=== PATIENT | female | born 1955 | race Caucasian/White ===

== ENCOUNTER 2016-08-27 22:12 | Inpatient (IN) ==
[2016-08-27] MEDS ORDERED: MORPHINE 2 MG/1 ML SYRINGE IV STA (22:37)
[2016-08-27] MEDS ORDERED: ONDANSETRON 4 MG/2 ML VIAL ONE (22:37)
[2016-08-27] MEDS ORDERED: ONDANSETRON 4 MG/2 ML VIAL IV STA (22:37)
[2016-08-27] MEDS ORDERED: MORPHINE 2 MG/1 ML SYRINGE ONE (22:38)
[2016-08-27 22:47] LABS: Basophils % 0.3 % (0.0-0.8); Eosinophils # 0.2 10*3/uL (0.0-0.87); Eosinophils % 2.8 % (0.00-10.9); Hematocrit 35.6 VOL% (35.7-47.0); Hemoglobin 11.9 GM/DL (12.0-16.0); Immature Granulocytes % 0.5 %; Immature Granulocytes Absolute 0.04 #; Lymphocytes # 2.7 10*3/uL (1.4-4.0); Lymphocytes % 31.4 % (21.3-54.2); Mean Corpuscular HGB Conc 33.4 GM/DL (32-36); Mean Corpuscular Hemoglobin 30 PG (27-34); Mean Corpuscular Volume 89.7 FL (87-102); Mean Platelet Volume 9.8 FL (9.6-12.0); Monocytes # 0.6 10*3/uL (0.11-0.8); Monocytes % 7.5 % (1.7-12.7); Neutrophils # 4.9 10*3/uL (1.4-7.4); Neutrophils % 57.5 % (38.7-73.9); Platelet Count 163 T/CUMM (130-400); Red Blood Count 3.97 MC/CUMM (3.8-5.5); Red Cell Distribution Width 13.1 % (9.3-17.3); White Blood Count 8.6 T/CUMM (4-12)
--- NOTE | 2016-08-27 22:58 | Emergency Department Note ---
IVentura Emily, am scribing for, and in the presence of, Danuta Alvarado DO 22:45. I, Danuta Alvarado DO, personally performed the services described in this documentation, ascribed by Cami Whitehead in my presence, and it is both accurate and complete . Arrival - Arrival Chief Complaint: Chest Pain Stated Complaint: chest pain,SOB ED Nursing Triage Note: C/O Chest pain-Midsternal radiating down left arm. Onset 2 days ago-Progressively getting worse. Reports taking gas-x without relief. +nausea/vomiting Mode of Arrival: Ambulatory Limitations: No Limitations Source: Patient, Family - History of Present Illness HPI Narrative: Pt is a 61 y/o female who came to ED with c/o chest pain, SOB, and left arm pain that has been ongoing for since night. Pt states she thought was just "gas" and took anti-acid pills but no relief. Pt has had some N/V that started at 230am this morning. Pt saw Dr. Cochran a year ago with heart cath but nothing was found, denies ever being dx with LBBB, and has not followed up since then. She notes she was given Nitro tabs and took two tonight. Pt reports moving or raising left arm is painful and hasn't slept since when pain started. Pt's PCP is Dr. Dharmesh Torres in [facility]. Her BP is 195/ 90 in ED. Onset (ago): day(s) Consistency: constant Severity: moderate Severity scale (1-10): 6 Quality: aching Date of Last Menstrual Period: Hysterectomy Allergies/Adverse Reactions: Allergies Allergy/AdvReac Type Severity Reaction Status Date / Time No Known Allergies Allergy Verified 08/27/16 22:21 Home Medications: Home Medications Medication Instructions Recorded Confirmed Type Atorvastatin [Lipitor] 40 mg PO BEDTIME 08/27/16 08/27/16 History Escitalopram [Lexapro] 20 mg PO DAILY 08/27/16 08/27/16 History Furosemide Tab [Lasix Tab] 20 mg PO DAILY 08/27/16 08/27/16 History Gabapentin 300 mg PO BID 08/27/16 08/27/16 History HYDROcodone/ACETAMIN 5-325 [[place] 1 tablet PO BID PRN 08/27/16 08/27/16 History 5-325] Lansoprazole 30 mg PO DAILY 08/27/16 08/27/16 History Levothyroxine Tab [Synthroid Tab] 137 mcg PO DAILY@0700 08/27/16 08/27/16 History Lisinopril 40 mg PO DAILY 08/27/16 08/27/16 History Metformin HCl 500 mg PO BID 08/27/16 08/27/16 History Nabumetone 750 mg PO BID 08/27/16 08/27/16 History Oxybutynin [Ditropan] 5 mg PO DAILY 08/27/16 08/27/16 History Oxycodone HCl/Acetaminophen 1 each PO Q4-6H PRN 08/27/16 08/27/16 History [Oxycodone-Acetaminophen 5-325] Ropinirole HCl 2 mg PO DAILY 08/27/16 08/27/16 History Review of System - Review of System 12 point system: reviewed and no additional remarkable complaints except as stated - Review of System Constitutional: Present: other (unable to sleep). Absent: chills, diaphoresis, fever Respiratory: Present: respiratory distress. Absent: cough Cardiovascular: Present: chest pain. Absent: syncope Gastrointestinal: Present: nausea, vomiting. Absent: abdominal pain Musculoskeletal: Present: arm pain (left arm especially with movement). Absent : back pain Skin: Absent: rash Neurological: Absent: headache, numbness, paresthesias, confusion Medical,Surgical,& Family Hx - Medical History Cardio: History of: Hypertension Endocrine: History of: Dyslipidemia - Surgical History Cardiac Surgeries: Sugical HX of: Cardiac Catheterization (in 2016, but nothing found under supervision of Dr. Cochran) - Family History Family History: noncontributory - Social History Smoking Status: Never smoker Frequency of Alcohol Use: None Type of Drug Use: None Functional capacity: independent ambulation Exam Vital Signs: Vital Signs Temperature 98.7 F 08/27/16 22:19 Pulse Rate 75 08/27/16 22:19 Respiratory Rate 18 08/27/16 22:19 Blood Pressure 191/97 08/27/16 22:19 O2 Sat by Pulse Oximetry 98 08/27/16 22:19 - General General appearance: alert, in no apparent distress, obese - Head Head exam: Present: atraumatic, normocephalic - Eye Eye exam: Present: PERRL, EOMI - ENT ENT exam: Present: mucous membranes moist. Absent: mucous membranes dry - Neck Neck exam: Present: full ROM. Absent: tenderness - Chest Chest inspection: Present: symmetric chest wall rise, tenderness (tenderness on palpation over left chest wall and into left arm) - Respiratory Respiratory exam: Present: normal lung sounds bilaterally. Absent: respiratory distress - Cardiovascular Cardiovascular exam: Present: regular rate, normal rhythm, normal heart sounds - Abdominal Exam Abdominal exam: Present: soft, normal bowel sounds. Absent: tenderness - Extremities Exam Extremities exam: Present: full ROM, tenderness (left arm). Absent: pedal edema - Neurological Exam Neurological exam: Present: alert, oriented X3, CN II-XII intact. Absent: motor sensory deficit - Psychiatric Psychiatric exam: Present: normal affect, normal mood - Skin Skin exam: Present: warm, dry Course Course Narrative: spoke with Dr Philippe who will admit pt Results - Labs CBC & BMP: 08/27/16 22:34 08/27/16 22:34 Lab Results: I have reviewed the patients labs Labs: Laboratory Tests 08/27/16 08/27/16 22:34 22:34 Hgb 11.9 L Hct 35.6 L Glucose 133 H Troponin I 0.358 H Albumin/Globulin Ratio 1.0 L Disposition Clinical Impression: Chest pain, Elevated troponin Case discussed with: patient Disposition: Still a Patient Condition: Stable Time of Disposition: 00:07
[2016-08-27 23:00] LABS: Alanine Aminotransferase 18 U/L (13-56); Albumin 3.8 G/DL (3.4-5.0); Alkaline Phosphatase 98 U/L (45-117); Aspartate Amino Transferase 16 U/L (0-37); Blood Urea Nitrogen 11 MG/DL (7-18); Glucose 133 MG/DL (74-106); Osmolality,Calculated 279.4 MOS/KG (273-304); Potassium 3.5 MMOL/L (3.5-5.1); Sodium 140 MMOL/L (136-145); Total Protein 7.3 G/DL (6.4-8.3); Troponin I Only 0.358 NG/ML (0.00-0.045)
[2016-08-27] MEDS ORDERED: ASPIRIN 325 MG TABLET PO STA (23:36)
[2016-08-27] MEDS ORDERED: ASPIRIN 325 MG TABLET ONE (23:48)
[2016-08-28] MEDS ORDERED: MAGNESIUM SULF RIDER 2 GM in PREMIX 1 EACH IV PRN (00:08)
[2016-08-28] MEDS ORDERED: MAGNESIUM SULF RIDER 4 GM in PREMIX 1 EACH IV PRN (00:08)
[2016-08-28] MEDS: DEXTROSE 5% NACL 0.45% 1,000 ML IV SCH ×2 (01:30→09:05)
[2016-08-28] MEDS: ONDANSETRON 4 MG/2 ML VIAL IV PRN ×3 (02:58→23:56)
[2016-08-28] MEDS: MORPHINE 2 MG/1 ML SYRINGE IV PRN ×4 (03:00→21:44)
[2016-08-28 05:58] LABS: Troponin I Only 0.435 NG/ML (0.00-0.045)
[2016-08-28 06:03] LABS: Magnesium 1.8 MG/DL (1.8-2.4); Risk Ratio 4.15; Thyroid Stimulating Hormone 0.776 uIU/ml (0.358-3.74); VLDL CHOLESTEROL 36.8 MG/DL
[2016-08-28] MEDS ORDERED: ENOXAPARIN 40 MG/0.4 ML SYRINGE SUBCUT SCH (09:00)
--- NOTE | 2016-08-28 10:02 | Cardiology History & Physical ---
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 Parnell is a 61 year old female whom I have treated in the past, last seen in clinic December 2014. She has a history of diabetes, hypertension, hyperlipidemia. Left heart catheterization December 2014 revealed no CAD. She has a history of gastritis, esophagitis, H. pylori, hiatal hernia and sleep apnea. She presents with chest discomfort. Symptoms began night (3 days ago) with a chest discomfort that radiated into her left shoulder. She had associated nausea and vomiting at that time. She has had episodic chest discomfort since and that has been waxing and waning, and on the night of admission became so intense it radiated down into her left arm and fingertips. She took 2 of her 's nitroglycerin which improved his symptoms somewhat, and came to the emergency room. She has continued to have chest discomfort overnight, which is triggered when she gets out of bed to go to the bathroom. It improves when she lays down. Family is present and described a decline in her exercise tolerance, with observations that she is far more dyspneic than usual and that any "little activity wears her out". They have observed dyspnea on exertion with her. She has not had any other acute illnesses and denies any recent GI bleeding, melena, bright red blood per rectum, coughs, colds, fevers, chills. Impression and plan: 1. Acute coronary syndrome-we are going to increase her anticoagulation to therapeutic Lovenox, and apply Nitropaste. We may need to add an antiplatelet agent. We are going to need to proceed with cardiac catheterization. If we can stabilize her symptoms this will commence Monday, but if she becomes more unstable or refractory to medical therapy we will need to do this more urgently. We will check an echocardiogram for further risk stratification. 2. Hypertension-we will monitor and treat accordingly. 3. Diabetes mellitus-we will have to hold her metformin in anticipation of catheterization. 4. Hyperlipidemia-we will continue therapy and monitor her LDL. Home Medications Medication Instructions Recorded Confirmed Type Atorvastatin [Lipitor] 40 mg PO BEDTIME 08/27/16 08/27/16 History Furosemide Tab [Lasix Tab] 20 mg PO DAILY 08/27/16 08/27/16 History HYDROcodone/ACETAMIN 5-325 [[place] 1 tablet PO BID PRN 08/27/16 08/27/16 History 5-325] Lansoprazole 30 mg PO DAILY 08/27/16 08/27/16 History Levothyroxine Tab [Synthroid Tab] 137 mcg PO DAILY@0700 08/27/16 08/27/16 History Lisinopril 40 mg PO DAILY 08/27/16 08/27/16 History Metformin HCl 500 mg PO BID 08/27/16 08/27/16 History Oxycodone HCl/Acetaminophen 1 each PO Q4-6H PRN 08/27/16 08/27/16 History [Oxycodone-Acetaminophen 5-325] Fluticasone/Salmeterol 250-50 1 puff INH BID 08/28/16 08/28/16 History [Advair 250-50] Allergies Allergy/AdvReac Type Severity Reaction Status Date / Time No Known Allergies Allergy Verified 08/27/16 22:21 12 point system: reviewed and no additional remarkable complaints except as stated Medical,Surgical,& Family Hx - Medical History Cardio: History of: Hypertension Endocrine: History of: Diabetes Mellitus (NIDDM), Dyslipidemia, Thyroid Disorder Respiratory: History of: Obstructive Sleep Apnea (uses cpap sometimes) - Surgical History Cardiac Surgeries: Sugical HX of: Cardiac Catheterization (December 2013, no significant coronary artery disease) Orthopedic Surgeries: Surgical HX of;: Total Knee Replacement (right and left knees) - Social History Smoking Status: Never smoker Frequency of Alcohol Use: None Type of Drug Use: None Marital Status: Lives With:: Spouse Functional capacity: independent ambulation Cardiology Physical Exam - Constitutional Vitals: Vital Signs Temp Pulse Resp BP Pulse Ox 97 F L 97 H 20 123/60 95 08/28/16 08:00 08/28/16 08:00 08/28/16 08:00 08/28/16 08:00 08/28/16 08:00 Intake and Output 08/27/16 08/28/16 08/28/16 23:59 07:59 15:59 Intake Total 300 / 300 1000 / 1000 Balance 300 / 300 1000 / 1000 Intake: IV 1000 / 1000 D5 1/2Ns 1,000 ml @ 125 1000 / 1000 mls/hr IV .Q8H PABLO Rx#: [id number] Oral 300 / 300 Other: Voiding Method Toilet # Voids 1 Weight 111.584 kg 111.725 kg Patient Weight 08/28/16 23:59 Weight 111.725 kg Exam: General appearance: Obese, no acute distress - Head Head exam: Present: normal inspection, normocephalic, atraumatic. Absent: hematoma, laceration - Eye Eye exam: Present: EOMI. Absent: conjunctival injection, nystagmus, periorbital swelling, scleral icterus, laceration to eyelids Pupils: Present: PERRL. Absent: constricted, dilated, fixed, irregular, unequal - ENT ENT exam: Present: normal exam, normal external ear exam - Neck Neck exam: Present: normal inspection. Absent: lymphadenopathy, meningismus, tenderness, thyromegaly - Respiratory Respiratory exam: Present: clear to auscultation bilaterally. Absent: accessory muscle use, chest wall tenderness - Cardiovascular Cardiovascular exam: Present: regular rate and rhythm. Absent: carotid bruit, gallop, JVD, rubs - GI/Abdominal GI/Abdominal exam: Present: normal bowel sounds, soft. Absent: distended, firm , guarding, hernia, mass, tenderness, rebound. - Extremities Exam Extremities exam: Present: normal inspection, normal capillary refill. Absent: calf tenderness, edema - Back Exam Back exam: Present: normal inspection. Absent: muscle spasm, vertebral tenderness - Neurological Exam Neurological exam: Present: alert, oriented X3, grossly intact without resting or intention tremor - Psychiatric Psychiatric exam: Present: normal affect, normal mood - Skin Skin exam: Present: normal color, warm, dry, intact. Absent: cyanosis, diaphoretic, rash, urticaria Result/EKG - Labs CBC & BMP: 08/27/16 22:34 08/27/16 22:34 Lab Results: I have reviewed the past 24 hour labs Labs: Laboratory Results - last 24 hr 08/27/16 08/27/16 08/27/16 22:34 22:34 22:34 WBC 8.6 RBC 3.97 Hgb 11.9 L Hct 35.6 L MCV 89.7 MCH 30 MCHC 33.4 RDW 13.1 Plt Count 163 MPV 9.8 Neut % (Auto) 57.5 Lymph % (Auto) 31.4 [place] % (Auto) 7.5 Eos % (Auto) 2.8 Baso % (Auto) 0.3 Neut # (Auto) 4.9 Lymph # (Auto) 2.7 [place] # (Auto) 0.6 Eos # (Auto) 0.2 Baso # (Auto) 0.0 Immature Gran % 0.5 Nucleated RBC % 0.0 Immature Gran # 0.04 Nucleated RBCs # 0.00 Sodium 140 Potassium 3.5 Chloride 102 Carbon Dioxide 29 Anion Gap 12.5 BUN 11 Creatinine 0.90 GFR Calculation 80 BUN/Creatinine Ratio 12.00 Glucose 133 H Calculated Osmolality 279.4 Calcium 9.0 Magnesium Total Bilirubin 0.50 AST 16 ALT 18 Alkaline Phosphatase 98 Total Creatine Kinase 157 CK-MB (CK-2) 2.3 Troponin I 0.358 H B-Natriuretic Peptide 46 Total Protein 7.3 Albumin 3.8 Globulin 3.5 Albumin/Globulin Ratio 1.0 L Triglycerides Cholesterol LDL Cholesterol VLDL Cholesterol HDL Cholesterol Heart Disease Risk Ratio TSH 3rd Generation 08/28/16 08/28/16 08/28/16 04:34 04:34 04:34 WBC RBC Hgb Hct MCV MCH MCHC RDW Plt Count MPV Neut % (Auto) Lymph % (Auto) [place] % (Auto) Eos % (Auto) Baso % (Auto) Neut # (Auto) Lymph # (Auto) [place] # (Auto) Eos # (Auto) Baso # (Auto) Immature Gran % Nucleated RBC % Immature Gran # Nucleated RBCs # Sodium Potassium Chloride Carbon Dioxide Anion Gap BUN Creatinine GFR Calculation BUN/Creatinine Ratio Glucose Calculated Osmolality Calcium Magnesium 1.8 Total Bilirubin AST ALT Alkaline Phosphatase Total Creatine Kinase 113 D CK-MB (CK-2) 1.9 Troponin I 0.435 H D B-Natriuretic Peptide 47 Total Protein Albumin Globulin Albumin/Globulin Ratio Triglycerides 184 H Cholesterol 170 LDL Cholesterol 101.0 VLDL Cholesterol 36.8 HDL Cholesterol 41 Heart Disease Risk Ratio 4.15 TSH 3rd Generation 0.776 - EKG EKG results: sinus rhythm (Left bundle branch block), not changed from:
--- NOTE | 2016-08-28 10:12 | EKG Report ---
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
[2016-08-28] MEDS ORDERED: NITROGLYCERIN 2% OINT 1 INCH/GM PACK TOP SCH (10:57)
--- NOTE | 2016-08-28 11:05 | XRay Report ---
History: Chest pain Date: 08/27/2016 Study: Chest x-ray AP portable Comparison exam: No previous similar exam The cardiac silhouette is upper normal in size. There is no mediastinal mass. The pulmonary vasculature is not engorged. There is no gross pleural effusion. The study was performed in shallow inspiration with bronchovascular crowding in the lung bases. There is no georges pneumonia. Surgical hardware from previous anterior cervical fusion overlies the lower cervical spine. There is mild thoracic spondylosis. Impression: Shallow inspiration. No definite acute process PROCEDURE INTERPRETED AT [facility] DEPARTMENT OF RADIOLOGY Final Report Signed by: Dr. Brigitte Main
[2016-08-28] MEDS: NITROGLYCERIN 2% OINT 1 INCH/GM PACK TOP SCH ×3 (11:09→23:16)
[2016-08-28] MEDS ORDERED: ENOXAPARIN 60 MG/0.6 ML SYRINGE SUBCUT ONE (11:30)
[2016-08-28 12:06] LABS: Troponin I Only 0.489 NG/ML (0.00-0.045)
[2016-08-28] MEDS: ASPIRIN 325 MG TABLET PO SCH (12:21)
[2016-08-28] MEDS: FUROSEMIDE 20 MG TABLET PO SCH (12:21)
[2016-08-28] MEDS: LISINOPRIL 20 MG TABLET PO SCH (12:21)
[2016-08-28] MEDS: PANTOPRAZOLE 40 MG TABLET PO SCH (12:21)
[2016-08-28] MEDS: FLUTICASONE/SALMETEROL 250-50 DISKUS 14 DOSE INH SCH ×2 (17:04→20:56)
[2016-08-28] MEDS ORDERED: ATORVASTATIN 40 MG TABLET PO SCH (21:00)
[2016-08-28] MEDS: ENOXAPARIN 120 MG/0.8 ML SYRINGE SUBCUT SCH (23:17)
[2016-08-29] MEDS ORDERED: MORPHINE 2 MG/1 ML SYRINGE IV PRN (00:47)
[2016-08-29] MEDS: ALUMINUM/MAGNES/SIMETH MAX STR 30 ML UDCUP PO PRN ×2 (01:19→21:30)
[2016-08-29] MEDS: LEVOTHYROXINE 137 MCG TABLET PO SCH (06:06)
[2016-08-29] MEDS: NITROGLYCERIN 2% OINT 1 INCH/GM PACK TOP SCH ×2 (06:06→12:22)
--- NOTE | 2016-08-29 06:30 | EKG Report ---
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
[2016-08-29] MEDS: ASPIRIN 325 MG TABLET PO SCH (09:08)
[2016-08-29] MEDS: PANTOPRAZOLE 40 MG TABLET PO SCH (09:08)
[2016-08-29] MEDS: FUROSEMIDE 20 MG TABLET PO SCH (09:08)
[2016-08-29] MEDS: FLUTICASONE/SALMETEROL 250-50 DISKUS 14 DOSE INH SCH ×2 (09:09→22:03)
[2016-08-29] MEDS: LISINOPRIL 20 MG TABLET PO SCH (09:09)
[2016-08-29] MEDS ORDERED: MAGNESIUM SULF RIDER 2 GM in PREMIX 1 EACH IV PRN (09:57)
[2016-08-29] MEDS ORDERED: POTASSIUM CHLORIDE RIDER 10 MEQ in PREMIX 1 EACH IV PRN (09:57)
[2016-08-29] MEDS ORDERED: DIAZEPAM 5 MG TABLET PO ONE (09:57)
[2016-08-29] MEDS ORDERED: diphenhydrAMINE CAP 25 MG CAPSULE PO ONE (09:57)
--- NOTE | 2016-08-29 10:01 | Cardiology Progress Note ---
Assessment and Plan (1) Acute coronary syndrome Status: Acute Current Visit: Yes (2) Left bundle branch block Status: Acute Current Visit: Yes (3) Hypertension Status: Chronic Current Visit: Yes (4) Diabetes mellitus Status: Chronic Current Visit: Yes (5) Hyperlipidemia Status: Chronic Current Visit: Yes Cardiology - PN: Subj Interval history: Hydrometer Tester: Dimas Summary: Ms. Parnell is a 61 year old female whom I have treated in the past, last seen in clinic December 2014. History of diabetes, hypertension, hyperlipidemia. Left heart catheterization December 2014 revealed no CAD. She has a history of gastritis, esophagitis, H. pylori, hiatal hernia and sleep apnea. She was admitted to the hospital with an STEMI. August 29, 2016: She continues to have intermittent chest pain with any kind of exertion, even using the bedside commode. She feels unwell. She feels very short of breath if she moves around at all. This is with Lovenox and Nitropaste in place. Impression and plan: 1. Acute coronary syndrome-she appears to have a high risk clinical scenario with ongoing symptoms with very minimal exertion despite medical therapy. Accordingly we will perform left heart catheterization urgently on the patient, and I have activated the lab. 2. Hypertension-we will monitor and treat accordingly. 3. Diabetes mellitus-we will have to hold her metformin in anticipation of catheterization. 4. Hyperlipidemia-we will continue therapy and monitor her LDL. 5. Left bundle branch block. Exam (Progress Note) - Constitutional Vitals: Period Temp Pulse Resp BP Sys/Stovall Pulse Ox Last 24 Hr 96.7 F-98.4 F 54-75 16-20 111-191/56-76 91-98 Exam: General appearance: normal weight, no acute distress - Head Head exam: Present: normal inspection, normocephalic, atraumatic. Absent: hematoma, laceration - Eye Eye exam: Present: EOMI. Absent: conjunctival injection, nystagmus, periorbital swelling, scleral icterus, laceration to eyelids Pupils: Present: PERRL. Absent: constricted, dilated, fixed, irregular, unequal - ENT ENT exam: Present: normal exam, normal external ear exam - Neck Neck exam: Present: normal inspection. Absent: lymphadenopathy, meningismus, tenderness, thyromegaly - Respiratory Respiratory exam: Present: clear to auscultation bilaterally. Absent: accessory muscle use, chest wall tenderness - Cardiovascular Cardiovascular exam: Present: regular rate and rhythm. Absent: carotid bruit, gallop, JVD, rubs - GI/Abdominal GI/Abdominal exam: Present: normal bowel sounds, soft. Absent: distended, firm , guarding, hernia, mass, tenderness, rebound. - Extremities Exam Extremities exam: Present: normal inspection, normal capillary refill. Absent: calf tenderness, edema - Back Exam Back exam: Present: normal inspection. Absent: muscle spasm, vertebral tenderness - Neurological Exam Neurological exam: Present: alert, oriented X3, grossly intact without resting or intention tremor - Psychiatric Psychiatric exam: Present: normal affect, normal mood - Skin Skin exam: Present: normal color, warm, dry, intact. Absent: cyanosis, diaphoretic, rash, urticaria Result/EKG - Labs CBC & BMP: 08/27/16 22:34 08/27/16 22:34 Lab Results: I have reviewed the past 24 hour labs Labs: Laboratory Results - last 24 hr 08/28/16 08/29/16 11:13 08:01 POC Glucose 128 H Total Creatine Kinase 102 CK-MB (CK-2) 2.0 Troponin I 0.489 H
--- NOTE | 2016-08-29 10:03 | History and Physical Update ---
Sedation H&P Update - History and Physical H&P was reviewed, the patient examined and there: are no changes in the patients condition since last H&P was completed. - Dictation Physical: refer to H&P completed by admitting physician - Physical Exam Mental Status: alert and oriented Heart: regular rate and rhythm Lung: clear to auscultation Abdomen: within normal limits Vitals: within normal limits - Sedation Plan for Sedation: moderate Patient Consent: Procedure disscussed with patient and patinet has consented., Risks and benefits were discussed with patient,including infection,, bleeding, injury to surrounding structures, seizure, temporary nerve, Patient understands and accepts potential risks/benefits and agrees to, proceed. ASA Class: IV Airway Assessment: Class II: Soft palate, uvula, fauces visible
[2016-08-29 10:37] LABS: Basophils % 0.4 % (0.0-0.8); Eosinophils # 0.2 10*3/uL (0.0-0.87); Hematocrit 33.2 VOL% (35.7-47.0); Hemoglobin 10.6 GM/DL (12.0-16.0); Immature Granulocytes % 0.4 %; Immature Granulocytes Absolute 0.02 #; Lymphocytes # 1.7 10*3/uL (1.4-4.0); Lymphocytes % 30.4 % (21.3-54.2); Mean Corpuscular HGB Conc 31.9 GM/DL (32-36); Mean Corpuscular Hemoglobin 30 PG (27-34); Mean Corpuscular Volume 92.7 FL (87-102); Monocytes # 0.3 10*3/uL (0.11-0.8); Monocytes % 5.1 % (1.7-12.7); Neutrophils # 3.3 10*3/uL (1.4-7.4); Neutrophils % 59.7 % (38.7-73.9); Platelet Count 184 T/CUMM (130-400); Red Blood Count 3.58 MC/CUMM (3.8-5.5); Red Cell Distribution Width 13.2 % (9.3-17.3); White Blood Count 5.5 T/CUMM (4-12)
[2016-08-29] MEDS ORDERED: HEPARIN/NACL 0.9% 2 UNITS/ML 1,000 ML IV ONE (10:39)
[2016-08-29] MEDS ORDERED: LIDOCAINE 1% 20 ML VIAL ONE (10:39)
[2016-08-29] MEDS ORDERED: MIDAZOLAM 2 MG/2 ML VIAL ONE ×2 (10:48→11:28)
[2016-08-29] MEDS ORDERED: fentaNYL 100 MCG/2 ML VIAL ONE (10:48)
[2016-08-29] MEDS: SODIUM CHLORIDE 0.45% 1,000 ML IV SCH ×2 (11:01→23:28)
[2016-08-29] MEDS ORDERED: BIVALIRUDIN 250 MG VIAL IV ONE (11:11)
[2016-08-29 11:15] LABS: CKMB % 8.7 %; Calcium 8.5 MG/DL (8.5-10.1); Osmolality,Calculated 285.3 MOS/KG (273-304); Potassium 4.1 MMOL/L (3.5-5.1)
[2016-08-29 11:21] LABS: Troponin I Only 3.61 NG/ML (0.00-0.045)
[2016-08-29] MEDS ORDERED: NITROGLYCERIN DRIP 50 MG/250 ML BOTTLE IV ONE (11:25)
[2016-08-29] MEDS ORDERED: METOPROLOL TARTRATE 5 MG/5 ML VIAL IV ONE (11:32)
[2016-08-29] MEDS ORDERED: NITROPRUSSIDE 50 MG/2 ML VIAL ONE ×2 (11:33→11:36)
[2016-08-29] MEDS ORDERED: TICAGRELOR 90 MG TABLET ONE (11:52)
[2016-08-29] MEDS: ENOXAPARIN 120 MG/0.8 ML SYRINGE SUBCUT SCH (12:22)
--- NOTE | 2016-08-29 12:25 | Cardiology Operative Report ---
Date of Procedure:: 08/29/16 Pre-op diagnosis: non-STEMI Post-op diagnosis: other (Severe single-vessel coronary artery disease) Procedure: 1. Selective left and right coronary angiography. 2. Left heart catheterization with left ventriculogram. 3. Right iliac angiography to rule out vascular complications. 4. Percutaneous intervention of the mid to distal right coronary artery with placement of overlapping synergy 4 x 12 mm (distal) and 4 x 16 mm (more proximal ) drug-eluting stents. 5. Placement of right iliac venous sheath. Impression: 1. Severe distal right coronary artery disease with 99% stenosis. 2. Right dominant coronary arteries. 3. Ejection fraction 40-45 % with inferior wall hypokinesis. 4. Angiographically normal right iliac artery without evidence of vascular complications. 5. Successful PCI of the distal right coronary artery as described above, with more proximal overlapping stent placed secondary to a proximal stent edge type a linear dissection. 6. Mild no reflow phenomenon successfully treated with intracoronary night pride. Plan: 1. DAPT > 12 months. 2. Risk factor modification. Equipment: Diagnostic 6 Palestinian JL4, JR4, pigtail catheters Guiding 6 Palestinian JR4, 180cm Expertwater wire, apex 2.5 x 12 mm balloon, synergy 4 x 12 mm and synergy 4 x 16 mm drug-eluting stents, apex 4 x 8 mm non-compliant balloon Hemodynamics: Aortic pressure 145/72 mmHg, left ventricular pressure 139/3 mmHg, LVEDP 13 mmHg Sedation: Versed 4 mg, fentanyl 100 mcg Procedure: After informed consent was obtained the patient was prepped and draped in sterile fashion. The right groin was infiltrated with 1% lidocaine and the right femoral vein was accessed via modified cellular technique using a micropuncture needle and a 4 Palestinian venous sheath was placed (to secure access) . Subsequently the right femoral artery was accessed via modified Seldinger technique using a micropuncture needle and a 6 Palestinian femoral arterial sheath was placed. All catheter exchanges were performed over a guidewire under fluoroscopic guidance. Diagnostic 6 Palestinian JL4 and JR4 catheters were advanced to the left and right coronary arteries respectively and multiple cineangiograms were performed in varying degrees of obliquity and angulation. Thereafter a pigtail catheter was advanced into the left ventricle where hemodynamics were obtained followed by left ventriculogram. Percutaneous intevention of the distal right coronary artery was then performed as described below. At conclusion of the procedure right iliac angiography was performed to rule out vascular complications. Findings: 1. The left main artery is angiographically normal. 2. The left anterior descending artery is a small vessel that is less than 2 mm in caliber that does not quite reach the apex, and is without significant discrete stenosis. 3. There is not an intermediate ramus branch. 4. The circumflex artery is a large but not dominant vessel that is free of significant disease. It gives rise to 3 small marginal branches, followed by 2 larger, lower marginal branches. 5. The right coronary artery is a large and dominant vessel with 99% discrete stenosis in the distal segment prior to the bifurcation. The midsegment has a long area of mild to moderate diffuse disease just prior to the more severe stenosis. 6. Ejection fraction is 40-45 % with inferior wall hypokinesis. 7. No significant mitral regurgitation. 8. No significant aortic stenosis. 9. The right iliac artery is angiographically normal without evidence of vascular complications. PCI: The patient was anticoagulated with Angiomax. After appropriate anticoagulation was confirmed with an ACT measurement, a guiding 6 Palestinian JR4 catheter was advanced to the right coronary artery. A Someecards 180 cm wire was used to traverse the right coronary artery. A apex 2.5 x 12 mm balloon was advanced to the site of stenosis and angioplasty was performed at 14 [place]. Thereafter, a synergy 4 x 12 mm drug-eluting stent was advanced to the site of angioplasty, and successfully deployed at 11 there was suspicion of a proximal stent edge linear type a dissection shubham. At the curvature, so a synergy 4 x 16 mm drug-eluting stent was advanced so that it was just overlapping with the recently deployed stent and covering the entirety of the diseased segment, and the stent was successfully deployed at 11 shubham. Afterwards there appeared to be some no reflow phenomenon. Multiple angiograms were obtained to rule out any other sites of dissection. 400 mcg of night pride was administered intracoronary, with resolution of the no reflow phenomenon. Afterwards, a non- compliant Evans 4 x 8 mm balloon was advanced into the stented segment and post- dilation was performed at twice at 12 shubham. Repeat intracoronary night pride 400 mcg was administered. Satisfactory angiographic result was obtained with appropriate step-up proximally and distally, and no evidence of residual vascular complications. Preoperatively there was 99% stenosis with HARRIET-3 flow , postoperatively there is 0% residual stenosis with HARRIET-3 flow. Contrast use: Visipaque 214 cc Fluoro time: 9.4 minutes Complications: Suspected type a linear dissection at the proximal stent edge as described above Specimens removed: none Devices implanted: stents as described above Anesthesia: moderate conscious sedation Surgeon / Physician: Damaris Cochran Electronics Assembler: none ([place]) Estimated blood loss: minimal Specimens: none sent Condition: stable Disposition: ICU/CCU
[2016-08-29] MEDS ORDERED: NITROGLYCERIN SL 0.4 MG TABLET SL PRN (12:42)
--- NOTE | 2016-08-29 13:04 | EKG Report ---
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
[2016-08-29 14:14] LABS: CKMB % 8.2 %
[2016-08-29 14:22] LABS: Troponin I Only 8.13 NG/ML (0.00-0.045)
[2016-08-29] MEDS ORDERED: NITROGLYCERIN DRIP 50 MG/250 ML BOTTLE IV SCH (19:00)
[2016-08-29] MEDS: ATORVASTATIN 40 MG TABLET PO SCH (20:27)
[2016-08-29] MEDS: TICAGRELOR 90 MG TABLET PO SCH (20:28)
[2016-08-29] MEDS: CARVEDILOL 6.25 MG TABLET PO SCH (20:28)
[2016-08-29 21:24] LABS: CKMB % 7.8 %
[2016-08-29 21:27] LABS: Troponin I Only 20.7 NG/ML (0.00-0.045)
[2016-08-30] MEDS: ACETAMINOPHEN 325 MG TABLET PO PRN ×2 (04:21→15:55)
[2016-08-30 05:06] LABS: Basophils % 0.2 % (0.0-0.8); Eosinophils # 0.3 10*3/uL (0.0-0.87); Eosinophils % 3.1 % (0.00-10.9); Hematocrit 30.1 VOL% (35.7-47.0); Immature Granulocytes % 0.5 %; Immature Granulocytes Absolute 0.04 #; Lymphocytes # 1.7 10*3/uL (1.4-4.0); Mean Corpuscular HGB Conc 33.2 GM/DL (32-36); Mean Corpuscular Hemoglobin 30 PG (27-34); Mean Corpuscular Volume 90.4 FL (87-102); Mean Platelet Volume 9.3 FL (9.6-12.0); Monocytes # 0.8 10*3/uL (0.11-0.8); Monocytes % 9.5 % (1.7-12.7); Neutrophils # 5.3 10*3/uL (1.4-7.4); Neutrophils % 65.7 % (38.7-73.9); Platelet Count 182 T/CUMM (130-400); Red Blood Count 3.33 MC/CUMM (3.8-5.5); Red Cell Distribution Width 13.2 % (9.3-17.3)
[2016-08-30 05:30] LABS: Calcium 8.8 MG/DL (8.5-10.1); Osmolality,Calculated 282.3 MOS/KG (273-304); Potassium 3.8 MMOL/L (3.5-5.1)
[2016-08-30 05:33] LABS: CKMB % 5.5 %
[2016-08-30 05:34] LABS: Troponin I Only 24.2 NG/ML (0.00-0.045)
[2016-08-30] MEDS: LEVOTHYROXINE 137 MCG TABLET PO SCH (06:24)
--- NOTE | 2016-08-30 06:28 | EKG Report ---
Stationary ECG Study 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
[2016-08-30] MEDS ORDERED: GLUCAGON 1 MG VIAL IM PRN (07:31)
[2016-08-30] MEDS ORDERED: DEXTROSE 50% 25 GM/50 ML VIAL IV PRN (07:31)
--- NOTE | 2016-08-30 07:33 | Cardiology Progress Note ---
Assessment and Plan - Time spent with patient Time spent with patient: Less than 30 minutes (1) Non-ST elevation myocardial infarction (NSTEMI) Status: Acute Current Visit: Yes (2) Coronary artery disease Status: Chronic Current Visit: Yes Qualifiers: Coronary Disease-Associated Artery/Lesion type: [place] artery [place] vs. transplanted heart: [place] heart Associated angina: angina presence unspecified Qualified Code(s): I25.10 - Atherosclerotic heart disease of [place] coronary artery without angina pectoris (3) Morbid obesity with BMI of 45.0-49.9, adult Status: Chronic Current Visit: Yes (4) Left bundle branch block Status: Chronic Current Visit: Yes (5) Hypertension Status: Chronic Current Visit: Yes Qualifiers: Hypertension type: essential hypertension Qualified Code(s): I10 - Essential (primary) hypertension (6) Diabetes mellitus Status: Chronic Current Visit: Yes Qualifiers: Diabetes mellitus type: type 2 Diabetes mellitus complication status: with unspecified complications Diabetes mellitus nursing home insulin use: without lead technical architect use Qualified Code(s): E11.8 - Type 2 diabetes mellitus with unspecified complications (7) Hyperlipidemia Status: Chronic Current Visit: Yes Cardiology - PN: Subj Interval history: Ms. ferro is without complaint this morning she denies additional chest pain. Her cath site looks and feels good. Anticipate moving to the floor. She is doing better overall. I would like to see her up and walking around she is doing well by tomorrow we will restart her metformin if her creatinine remained stable and anticipate discharge soon. Cardiac rehab will see today. She needs cardiac rehab for dietary and exercise teaching. She status post PCI without apparent complication. Exam (Progress Note) - Constitutional Vitals: Period Temp Pulse Resp BP Sys/Stovall Pulse Ox Last 24 Hr 97.0 F-99.6 F 59-85 13-30 104-191/41-109 91-99 General appearance: morbidly obese - Head Head exam: Present: normal inspection - Eye Eye exam: Present: EOMI Pupils: Present: WILLOW - ENT ENT exam: Present: normal exam - Neck Neck exam: Present: normal inspection - Respiratory Respiratory exam: Present: clear to auscultation bilaterally - Cardiovascular Cardiovascular exam: Present: regular rate and rhythm (Tones distant) - GI/Abdominal GI/Abdominal exam: Present: normal bowel sounds - Extremities Exam Extremities exam: Present: normal inspection, other (Cath site looks good distal pulses are good) - Back Exam Back exam: Present: normal inspection - Neurological Exam Neurological exam: Present: alert, oriented X3 - Psychiatric Psychiatric exam: Present: normal affect, depressed - Skin Skin exam: Present: normal color, warm Result/EKG - Labs CBC & BMP: 08/30/16 04:45 08/30/16 04:45 Labs: Laboratory Results - last 24 hr 08/29/16 08/29/16 08/29/16 08:01 10:15 10:15 WBC 5.5 D RBC 3.58 L Hgb 10.6 L Hct 33.2 L MCV 92.7 MCH 30 MCHC 31.9 L RDW 13.2 Plt Count 184 MPV 9.0 L Neut % (Auto) 59.7 Lymph % (Auto) 30.4 Hall % (Auto) 5.1 Eos % (Auto) 4.0 Baso % (Auto) 0.4 Neut # (Auto) 3.3 Lymph # (Auto) 1.7 Hall # (Auto) 0.3 Eos # (Auto) 0.2 Baso # (Auto) 0.0 Immature Gran % 0.4 Nucleated RBC % 0.0 Immature Gran # 0.02 Nucleated RBCs # 0.00 Sodium 141 Potassium 4.1 Chloride 104 Carbon Dioxide 31 Anion Gap 10.1 BUN 15 Creatinine 1.00 GFR Calculation 71 BUN/Creatinine Ratio 15.00 Glucose 172 H POC Glucose 128 H Calculated Osmolality 285.3 Calcium 8.5 Total Creatine Kinase 285 H D CK-MB (CK-2) 24.8 H D CK and CKMB Interp 8.7 Troponin I 3.610 H D 08/29/16 08/29/16 08/30/16 13:22 20:42 04:45 WBC 8.0 D RBC 3.33 L Hgb 10.0 L Hct 30.1 L MCV 90.4 MCH 30 MCHC 33.2 RDW 13.2 Plt Count 182 MPV 9.3 L Neut % (Auto) 65.7 Lymph % (Auto) 21.0 L [place] % (Auto) 9.5 Eos % (Auto) 3.1 Baso % (Auto) 0.2 Neut # (Auto) 5.3 Lymph # (Auto) 1.7 Hall # (Auto) 0.8 Eos # (Auto) 0.3 Baso # (Auto) 0.0 Immature Gran % 0.5 Nucleated RBC % 0.0 Immature Gran # 0.04 Nucleated RBCs # 0.00 Sodium Potassium Chloride Carbon Dioxide Anion Gap BUN Creatinine GFR Calculation BUN/Creatinine Ratio Glucose POC Glucose Calculated Osmolality Calcium Total Creatine Kinase 346 H D 616 H D CK-MB (CK-2) 28.3 H 48.0 H D CK and CKMB Interp 8.2 7.8 Troponin I 8.130 H D 20.700 H D 08/30/16 08/30/16 04:45 04:45 WBC RBC Hgb Hct MCV MCH MCHC RDW Plt Count MPV Neut % (Auto) Lymph % (Auto) Hall % (Auto) Eos % (Auto) Baso % (Auto) Neut # (Auto) Lymph # (Auto) [place] # (Auto) Eos # (Auto) Baso # (Auto) Immature Gran % Nucleated RBC % Immature Gran # Nucleated RBCs # Sodium 141 Potassium 3.8 Chloride 103 Carbon Dioxide 28 Anion Gap 13.8 BUN 12 Creatinine 0.80 GFR Calculation 93 BUN/Creatinine Ratio 15.00 Glucose 129 H POC Glucose Calculated Osmolality 282.3 Calcium 8.8 Total Creatine Kinase 691 H CK-MB (CK-2) 38.0 H D CK and CKMB Interp 5.5 Troponin I 24.200 H Specialty Discharge - Follow Up or Referrals
[2016-08-30] MEDS: TICAGRELOR 90 MG TABLET PO SCH ×2 (08:53→21:05)
[2016-08-30] MEDS: ASPIRIN EC 81 MG TABLET PO SCH (08:53)
[2016-08-30] MEDS: FUROSEMIDE 20 MG TABLET PO SCH (08:54)
[2016-08-30] MEDS: CARVEDILOL 6.25 MG TABLET PO SCH ×2 (08:55→21:05)
[2016-08-30] MEDS: LISINOPRIL 20 MG TABLET PO SCH (08:55)
[2016-08-30] MEDS: FLUTICASONE/SALMETEROL 250-50 DISKUS 14 DOSE INH SCH ×2 (09:42→21:04)
[2016-08-30] MEDS: PANTOPRAZOLE 40 MG TABLET PO SCH (10:31)
[2016-08-30] MEDS: INSULIN REGULAR 100 UNIT/ML SUBCUT SCH ×3 (12:31→21:05)
[2016-08-30] MEDS: ATORVASTATIN 40 MG TABLET PO SCH (21:05)
[2016-08-31 05:15] LABS: Basophils % 0.3 % (0.0-0.8); Eosinophils # 0.3 10*3/uL (0.0-0.87); Eosinophils % 3.8 % (0.00-10.9); Hematocrit 33.2 VOL% (35.7-47.0); Immature Granulocytes % 0.6 %; Immature Granulocytes Absolute 0.04 #; Lymphocytes % 30.2 % (21.3-54.2); Mean Corpuscular HGB Conc 33.1 GM/DL (32-36); Mean Corpuscular Hemoglobin 30 PG (27-34); Mean Corpuscular Volume 91.2 FL (87-102); Mean Platelet Volume 9.1 FL (9.6-12.0); Monocytes # 0.5 10*3/uL (0.11-0.8); Monocytes % 7.6 % (1.7-12.7); Neutrophils # 3.8 10*3/uL (1.4-7.4); Neutrophils % 57.5 % (38.7-73.9); Platelet Count 170 T/CUMM (130-400); Red Blood Count 3.64 MC/CUMM (3.8-5.5); Red Cell Distribution Width 13.2 % (9.3-17.3); White Blood Count 6.6 T/CUMM (4-12)
[2016-08-31 05:52] LABS: Calcium 8.7 MG/DL (8.5-10.1); Magnesium 2.4 MG/DL (1.8-2.4); Osmolality,Calculated 283.1 MOS/KG (273-304); Potassium 3.7 MMOL/L (3.5-5.1)
[2016-08-31 05:53] LABS: Troponin I Only 12.5 NG/ML (0.00-0.045)
[2016-08-31] MEDS: LEVOTHYROXINE 137 MCG TABLET PO SCH (06:11)
[2016-08-31] MEDS: INSULIN REGULAR 100 UNIT/ML SUBCUT SCH ×2 (08:34→11:19)
[2016-08-31] MEDS: FLUTICASONE/SALMETEROL 250-50 DISKUS 14 DOSE INH SCH (08:34)
[2016-08-31] MEDS: FUROSEMIDE 20 MG TABLET PO SCH (08:34)
[2016-08-31] MEDS: CARVEDILOL 6.25 MG TABLET PO SCH (08:35)
[2016-08-31] MEDS: PANTOPRAZOLE 40 MG TABLET PO SCH (08:35)
[2016-08-31] MEDS: TICAGRELOR 90 MG TABLET PO SCH (08:35)
[2016-08-31] MEDS: ASPIRIN EC 81 MG TABLET PO SCH (08:35)
[2016-08-31] MEDS: LISINOPRIL 20 MG TABLET PO SCH (08:35)
--- NOTE | 2016-08-31 10:17 | Discharge Summary ---
<Nisreen La - Last Filed: 08/31/16 10:06> Hospital Course - Hospital Course Hospital Course: Field Rep: [place] Ms. Parnell is a 61 year old female who is followed by Dr. Cochran, last seen in clinic December 2014. She has a history of diabetes, hypertension, hyperlipidemia. Left heart catheterization December 2014 revealed no CAD. She has a history of gastritis, esophagitis, H. pylori, hiatal hernia and sleep apnea. Patient presented with non-ST elevation SC. Subsequently, she was taken to the cardiac catheterization lab per Dr. Cochran with the following impressions noted: Impression: 1. Severe distal right coronary artery disease with 99% stenosis. 2. Right dominant coronary arteries. 3. Ejection fraction 40-45 % with inferior wall hypokinesis. 4. Angiographically normal right iliac artery without evidence of vascular complications. 5. Successful PCI of the distal right coronary artery as described above, with more proximal overlapping stent placed secondary to a proximal stent edge type a linear dissection. 6. Mild no reflow phenomenon successfully treated with intracoronary night pride. Plan: 1. DAPT > 12 months. 2. Risk factor modification. Post cardiac catheterization patient was transferred back to the cardiac care unit in stable condition. She did well overnight. Troponin peaked at 24.2 post catheterization. It is now trending downward as expected. Patient was transferred to the telemetry unit yesterday afternoon. She continues to do well and has been without complications. She denies chest pain, heaviness and tightness. Telemetry has been reviewed, she has been without ectopy. Right groin is soft without bleeding, hematoma and bruit. Distal pulses are present. Patient has ambulated around the room without difficulty. Right groin has remained stable post ambulation. Right groin precautions have been reviewed with the patient. She verbalizes understanding. I have stressed the importance of compliance with dual antiplatelet therapy. She verbalizes understanding of this. She will be discharged home on aspirin and Brilinta. Vital signs are stable. She is currently in a normal sinus rhythm heart rates in the 60s without any overt arrhythmias or ectopy noted. Patient is anxious for discharge home. Having felt that patient has met maximal medical therapy, she will be discharged home in stable condition. Patient has been instructed to resume her metformin today as her creatinine is stable at 0.8 and she is now 48 hours post catheterization. Patient has been given a follow-up appointment Dr. Cochran in approximately 2 weeks with CBC, BMP, magnesium and EKG. Patient verbalizes understanding of discharge instructions and discharge medications. - Time spent with patient Time with patient DS: Greater than 30 minutes Diagnosis - Discharge Diagnosis (1) Non-ST elevation myocardial infarction (NSTEMI) Status: Resolved (2) Coronary artery disease Status: Chronic (3) Diabetes mellitus Status: Chronic (4) Hyperlipidemia Status: Chronic (5) Hypertension Status: Chronic (6) Left bundle branch block Status: Chronic (7) Morbid obesity with BMI of 45.0-49.9, adult Status: Chronic Specialty Discharge - Follow Up or Referrals Follow up with: Damaris Cochran MD [Physician] - 09/13/16 8:10 am (Point with Dr. Cochran in approximately 2 weeks with CBC, BMP, magnesium and EKG.) Discharge Plan - Discharge Data Disposition: Disch To Home/Self Care Condition at Discharge: Stable Discharge Diet: heart healthy Activity: no lifting (Avoid squatting and heavy lifting 1 week), other (Post cath expectations) Hygiene: other (Post cath expectations) Weight Bearing at Discharge: other (Post cath expectations) Driving: other (Post cath expectations) Contact your physician if you experience:: fever over 101, Difficulty voiding, Redness or swelling, Nausea/Vomiting, Shortness of breath, Bleeding, pain uncontrolled by pain medications - Discharge Medications New Aspirin EC Tab 81 mg PO DAILY tablet Atorvastatin [Lipitor] 80 mg PO BEDTIME #30 tablet Ticagrelor [Brilinta] 90 mg PO BID #60 tablet Carvedilol [Coreg] 6.25 mg PO BID #60 tablet Continue Lansoprazole 30 mg PO DAILY HYDROcodone/ACETAMIN 5-325 [[place] 5-325] 1 tablet PO BID PRN PRN Reason: Pain Metformin HCl 500 mg PO BID Lisinopril 40 mg PO DAILY Levothyroxine Tab [Synthroid Tab] 137 mcg PO DAILY@0700 Furosemide Tab [Lasix Tab] 20 mg PO DAILY Oxycodone HCl/Acetaminophen [Oxycodone-Acetaminophen 5-325] 1 each PO Q4-6H PRN PRN Reason: Pain Fluticasone/Salmeterol 250-50 [Advair 250-50] 1 puff INH BID Discontinued Atorvastatin [Lipitor] 40 mg PO BEDTIME - Follow Up or Referral Follow Up: Damaris Cochran MD [Physician] - 09/13/16 8:10 am (Point with Dr. Cochran in approximately 2 weeks with CBC, BMP, magnesium and EKG.) - Forms/Instructions Instructions: Myocardial Infarction (GEN), Left Heart Catheterization (DC), Heart Healthy Diet (GEN), Coronary Intravascular Stent Placement (DC) Exam - Constitutional Vitals: Period Temp Pulse Resp BP Sys/Stovall Pulse Ox Last 24 Hr 97.6 F-98.7 F 58-68 16-20 137-155/66-75 91-98 General appearance: no acute distress, over weight - Head Head exam: Present: normal inspection, normocephalic, atraumatic - Neck Neck exam: Present: normal inspection - Respiratory Respiratory exam: Present: clear to auscultation bilaterally. Absent: accessory muscle use, chest wall tenderness, rales, rhonchi, stridor, wheezes - Cardiovascular Cardiovascular exam: Present: regular rate and rhythm - GI/Abdominal GI/Abdominal exam: Present: normal bowel sounds, soft. Absent: distended, firm , mass, tenderness - Extremities Exam Extremities exam: Present: normal inspection, other (Right groin is soft without bleeding, hematoma and bruit. Distal pulses present.). Absent: normal capillary refill, calf tenderness, edema - Back Exam Back exam: Present: normal inspection - Neurological Exam Neurological exam: Present: alert, oriented X3 - Psychiatric Psychiatric exam: Present: normal affect, normal mood - Skin Skin exam: Present: normal color, warm, dry Discharge Results Procedures and tests throughout hospitalization: Pending Orders 08/29/16 10:33 CL heart Routine Labs on day of discharge: Labs from last 24 hours 08/31/16 08/31/16 08/31/16 10:53 07:02 05:02 WBC RBC Hgb Hct MCV MCH MCHC RDW Plt Count MPV Neut % (Auto) Lymph % (Auto) [place] % (Auto) Eos % (Auto) Baso % (Auto) Neut # (Auto) Lymph # (Auto) [place] # (Auto) Eos # (Auto) Baso # (Auto) Immature Gran % Nucleated RBC % Immature Gran # Nucleated RBCs # Sodium 142 Potassium 3.7 Chloride 104 Carbon Dioxide 30 Anion Gap 11.7 BUN 12 Creatinine 0.80 GFR Calculation 93 BUN/Creatinine Ratio 15.00 Glucose 113 H POC Glucose 160 H 128 H Calculated Osmolality 283.1 Calcium 8.7 Magnesium 2.4 Troponin I 12.500 H D 08/31/16 08/30/16 08/30/16 05:02 19:29 15:32 WBC 6.6 RBC 3.64 L Hgb 11.0 L Hct 33.2 L MCV 91.2 MCH 30 MCHC 33.1 RDW 13.2 Plt Count 170 MPV 9.1 L Neut % (Auto) 57.5 Lymph % (Auto) 30.2 [place] % (Auto) 7.6 Eos % (Auto) 3.8 Baso % (Auto) 0.3 Neut # (Auto) 3.8 Lymph # (Auto) 2.0 [place] # (Auto) 0.5 Eos # (Auto) 0.3 Baso # (Auto) 0.0 Immature Gran % 0.6 Nucleated RBC % 0.0 Immature Gran # 0.04 Nucleated RBCs # 0.00 Sodium Potassium Chloride Carbon Dioxide Anion Gap BUN Creatinine GFR Calculation BUN/Creatinine Ratio Glucose POC Glucose 149 H 182 H Calculated Osmolality Calcium Magnesium Troponin I 08/30/16 11:25 WBC RBC Hgb Hct MCV MCH MCHC RDW Plt Count MPV Neut % (Auto) Lymph % (Auto) [place] % (Auto) Eos % (Auto) Baso % (Auto) Neut # (Auto) Lymph # (Auto) [place] # (Auto) Eos # (Auto) Baso # (Auto) Immature Gran % Nucleated RBC % Immature Gran # Nucleated RBCs # Sodium Potassium Chloride Carbon Dioxide Anion Gap BUN Creatinine GFR Calculation BUN/Creatinine Ratio Glucose POC Glucose 159 H Calculated Osmolality Calcium Magnesium Troponin I - Imaging and Cardiology Cardiology Procedure: report reviewed by me DS: Provider Date of admission: 08/28/16 00:08 Primary care physician: . No PCP Attending physician on admission: Damaris Cochran, Consults: 08/29/16 12:42 Consult to Cardiac Rehabilitation [CONS] Routine Reason for Cardiac Rehabilitation: Risk Factor Modification Discharging clinician: Nisreen La NP Expected date of discharge: 08/31/16 <Juli Hastings - Last Filed: 08/31/16 13:31> Hospital Course - Time spent with patient Time with patient DS: Greater than 30 minutes Diagnosis - Discharge Diagnosis (1) Non-ST elevation myocardial infarction (NSTEMI) Status: Resolved (2) Coronary artery disease Status: Chronic (3) Morbid obesity with BMI of 45.0-49.9, adult Status: Chronic (4) Left bundle branch block Status: Chronic (5) Hypertension Status: Chronic (6) Diabetes mellitus Status: Chronic (7) Hyperlipidemia Status: Chronic Discharge Plan - Discharge Data Condition at Discharge: Stable Discharge Diet: heart healthy Activity: no lifting, other Hygiene: other Weight Bearing at Discharge: other Driving: other Contact your physician if you experience:: fever over 101, Difficulty voiding, Redness or swelling, Nausea/Vomiting, Shortness of breath, Bleeding, pain uncontrolled by pain medications Exam - Constitutional General appearance: no acute distress, morbidly obese - Head Head exam: Present: normal inspection, normocephalic, atraumatic - Neck Neck exam: Present: normal inspection - Respiratory Respiratory exam: Present: clear to auscultation bilaterally - Cardiovascular Cardiovascular exam: Present: regular rate and rhythm - GI/Abdominal GI/Abdominal exam: Present: normal bowel sounds - Extremities Exam Extremities exam: Present: normal inspection, other - Back Exam Back exam: Present: normal inspection - Neurological Exam Neurological exam: Present: alert, oriented X3 - Psychiatric Psychiatric exam: Present: normal affect, normal mood - Skin Skin exam: Present: normal color, warm, dry Discharge Results - Impressions No ventricular ectopy on telemetry strips. Sinus rhythm no AV block and chronic left bundle branch block.
[2016-08-31 11:10] VITALS: BP 138/66
== END 2016-08-31 14:31 | disposition home or self-care (01) | DRG 247 ==
LOC: N.ED 22:12 → N.EDINP 08-28 00:08 → N.TELES 08-28 00:36 → N.CC 08-29 12:35 → N.TELEN 08-30 10:00
PROVIDERS: ADMIT Internal Medicine Cardiovascular Disease; ATTEND Internal Medicine Cardiovascular Disease
PROC: CLCCHCL (ICD-10-PCS; 2016-08-29 11:15)

== ENCOUNTER 2019-03-07 10:44 | Observation (INO) ==
[~2019-03-07 10:44] MED LIST: ASPIRIN 325 MG TABLET PO ONE; DIAZEPAM 5 MG TABLET PO ONE; MAGNESIUM SULF RIDER 2 GM in PREMIX 1 EACH IV PRN; POTASSIUM CHLORIDE RIDER 10 MEQ in PREMIX 1 EACH IV PRN; diphenhydrAMINE CAP 25 MG CAPSULE PO ONE
[2019-03-07] MEDS ORDERED: LIDOCAINE 1% 20 ML VIAL ONE (11:49)
[2019-03-07] MEDS ORDERED: HEPARIN/NACL 0.9% 2 UNITS/ML 1,000 ML IV ONE (11:49)
[2019-03-07] MEDS ORDERED: ASPIRIN 325 MG TABLET ONE (11:50)
[2019-03-07] MEDS ORDERED: DIAZEPAM 5 MG TABLET ONE (11:50)
[2019-03-07] MEDS ORDERED: diphenhydrAMINE CAP 25 MG CAPSULE ONE (11:50)
[2019-03-07 11:54] LABS: Basophils % 0.6 % (0.0-0.8); Eosinophils # 0.2 10*3/uL (0.0-0.87); Eosinophils % 3.7 % (0.00-10.9); Hematocrit 27.7 VOL% (35.7-47.0); Hemoglobin 8.3 GM/DL (12.0-16.0); Immature Granulocytes % 0.2 %; Immature Granulocytes Absolute 0.01 #; Lymphocytes # 1.9 10*3/uL (1.4-4.0); Lymphocytes % 38.5 % (21.3-54.2); Mean Corpuscular Volume 87.4 FL (87-102); Mean Platelet Volume 9.7 FL (9.6-12.0); Monocytes % 6.7 % (1.7-12.7); Neutrophils % 50.3 % (38.7-73.9); Platelet Count 184 T/CUMM (130-400); Red Blood Count 3.17 MC/CUMM (3.8-5.5); Red Cell Distribution Width 15.9 % (9.3-17.3); White Blood Count 4.9 T/CUMM (4-12)
[2019-03-07 12:01] LABS: INR 0.9; PT Patient Result 10.1 SECS (9.6-12.2)
[2019-03-07 12:13] LABS: Albumin 3.5 G/DL (3.4-5.0); Bilirubin,Total 0.6 MG/DL (0.2-1.0); Calcium 8.6 MG/DL (8.5-10.1); Total Protein 7.1 G/DL (6.4-8.3)
[2019-03-07] MEDS: SODIUM CHLORIDE 0.9% 1,000 ML IV SCH (12:17)
[2019-03-07] MEDS ORDERED: oxyCODONE IR 5 MG TABLET PO PRN (15:12)
[2019-03-07] MEDS ORDERED: ZALEPLON 5 MG CAPSULE PO PRN (15:21)
[2019-03-07] MEDS ORDERED: DOCUSATE SODIUM 100 MG CAPSULE PO PRN (15:21)
[2019-03-07] MEDS ORDERED: BISACODYL 5 MG TABLET PO PRN (15:21)
[2019-03-07] MEDS ORDERED: ONDANSETRON 4 MG/2 ML VIAL IV PRN (15:21)
[2019-03-07] MEDS ORDERED: MAGNESIUM SULF RIDER 4 GM in PREMIX 1 EACH IV PRN (15:21)
[2019-03-07] MEDS ORDERED: SODIUM CHLORIDE 0.9% 1,000 ML IV PRN (15:26)
[2019-03-07] MEDS ORDERED: NITROGLYCERIN SL 0.4 MG TABLET SL SCH (15:30)
[2019-03-07] MEDS ORDERED: NITROGLYCERIN SL 0.4 MG TABLET SL PRN (16:14)
[2019-03-07 19:17] LABS: Ferritin 4.7 ng/ml (8-252)
[2019-03-07 19:50] LABS: Folate 9.2 NG/ML (5.4-24.0)
[2019-03-07] MEDS ORDERED: ATORVASTATIN 40 MG TABLET PO SCH (21:00)
[2019-03-07] MEDS: PANTOPRAZOLE 40 MG TABLET PO SCH (21:48)
[2019-03-08 05:22] LABS: Basophils % 0.4 % (0.0-0.8); Eosinophils # 0.2 10*3/uL (0.0-0.87); Eosinophils % 4.5 % (0.00-10.9); Hematocrit 32.7 VOL% (35.7-47.0); Immature Granulocytes % 0.7 %; Immature Granulocytes Absolute 0.04 #; Lymphocytes # 2.1 10*3/uL (1.4-4.0); Lymphocytes % 38.4 % (21.3-54.2); Mean Corpuscular HGB Conc 30.6 GM/DL (32-36); Mean Corpuscular Volume 88.4 FL (87-102); Mean Platelet Volume 9.9 FL (9.6-12.0); Monocytes % 8.7 % (1.7-12.7); Neutrophils % 47.3 % (38.7-73.9); Platelet Count 168 T/CUMM (130-400); Red Cell Distribution Width 15.9 % (9.3-17.3); White Blood Count 5.4 T/CUMM (4-12)
[2019-03-08 06:11] LABS: Calcium 8.3 MG/DL (8.5-10.1); Osmolality,Calculated 288.8 MOS/KG (273-304); Risk Ratio 3.37; VLDL CHOLESTEROL 39.6 MG/DL
[2019-03-08] MEDS: SODIUM CHLORIDE 0.9% 1,000 ML IV SCH ×2 (06:42→06:43)
[2019-03-08] MEDS ORDERED: LEVOTHYROXINE 150 MCG TABLET PO SCH (07:00)
[2019-03-08] MEDS: IPRATROPIUM 500 MCG/2.5 ML NEB RESP TX SCH ×2 (08:05→10:49)
[2019-03-08] MEDS ORDERED: DILTIAZEM CD 120 MG CAPSULE PO SCH (09:00)
[2019-03-08] MEDS ORDERED: FUROSEMIDE 20 MG TABLET PO SCH (09:00)
[2019-03-08] MEDS ORDERED: OLMESARTAN 20 MG TABLET PO SCH (09:00)
[2019-03-08] MEDS ORDERED: ISOSORBIDE MONONITRATE 30 MG TABLET PO SCH (09:00)
[2019-03-08] MEDS ORDERED: ASPIRIN EC 81 MG TABLET PO SCH (09:00)
[2019-03-08] MEDS ORDERED: MONTELUKAST 10 MG TABLET PO SCH (09:00)
[2019-03-08] MEDS: PANTOPRAZOLE 40 MG TABLET PO SCH (09:09)
[2019-03-08] MEDS ORDERED: LACTATED RINGERS 1,000 ML IV SCH (12:30)
[2019-03-08] MEDS ORDERED: PROPOFOL 500 MG/50 ML BOTTLE IV ONE (13:15)
[2019-03-08] MEDS ORDERED: ETOMIDATE 20 MG/10 ML VIAL IV ONE (13:15)
[2019-03-08] MEDS ORDERED: LIDOCAINE 2% 5 ML VIAL ONE (13:15)
[2019-03-08 15:18] VITALS: BP 162/72
[2019-03-09] MEDS ORDERED: CLOPIDOGREL 75 MG TABLET PO SCH (09:00)
== END 2019-03-08 15:30 | disposition home or self-care (01) ==
LOC: N.CL 10:44 → N.TELEN 10:44 → N.CL 11:10 → N.TELEN 15:46
PROVIDERS: ADMIT Internal Medicine Cardiovascular Disease; ATTEND Internal Medicine Cardiovascular Disease